=== PATIENT | female | born 1990 | race Caucasian/White ===

== ENCOUNTER 2022-11-15 10:10 | Emergency (ER) | payer OTHER ==
--- NOTE | 2022-11-15 11:02 | XRAY Report ---
PROCEDURE: Knee 4 View LT INDICATIONS: Trauma TECHNIQUE: 4 views of the left knee(s) were acquired. COMPARISON: None. FINDINGS: Bones: No fractures or dislocations. No suspicious bony lesions. Lateral subluxation of the patella due to mass effect from the effusion. Soft tissues: Massive knee joint effusion. No suspicious soft tissue calcifications or masses. IMPRESSION: Massive knee joint effusion, without displaced fracture. Internal derangement is probable. Consider n onemergent MRI. Reviewed by: Kamron Santamaria on 11/15/2022 11:01 AM PDT Approved by: Kamron Santamaria on 11/15/2022 11:01 AM PDT Station ID: [id number]
[2022-11-15] MEDS: oxyCODONE 5 MG TABLET PO STA ×2 (12:28→12:30)
[2022-11-15 13:10] LABS: BF CLARITY CLOUDY; BF SOURCE SYNOVIAL; CC,BF RBC 10000 /mm^3; CC,BF WBC 5179 /mm^3
[2022-11-15 13:11] LABS: BF COLOR YELLOW
[2022-11-15 13:24] LABS: LYMPHOCYTES %,BODY FLUID 7 %; MONOCYTES %,BODY FLUID 12 %; NEUTROPHILS %, BF 81 %
--- NOTE | 2022-11-15 13:30 | ED Physician Documentation ---
PD HPI LOWER EXT INJURY - Stated complaint Stated Complaint: LT KNEE PX,SWELLING - Chief complaint Chief Complaint: Trauma Ext - History obtained from History obtained from: Patient - Additional information Additional information: Patient is a 32-year-old female presenting for evaluation of left knee pain that has been present for the past 1 week with increasing swelling and pain. She remembers waking up in standing up from her bed and hearing a pop in the knee and feeling a laxity in the knee. Since then she has had increased swelling and pain. She has continued to ambulate. She is visiting from [place]. She does report a prior history of knee injury with an MRI but is unsure of The injury at that time. She was referred to physical therapy at that time. She has not required surgery for this knee. She does have a history of psoriatic arthritis and is on medications for this including methotrexate. Review of Systems Constitutional: denies: Fever Cardiac: denies: Chest pain / pressure Respiratory: denies: Dyspnea Musculoskeletal: reports: Extremity pain, Extremity swelling PD PAST MEDICAL HISTORY - Present Medications Home Medications: Ambulatory Orders Medication Instructions Recorded Confirmed HYDROcod/ACETAM 5/325 [Nathrop 5/325] 1 tab PO Q6HR PRN #15 tab 11/15/22 - Allergies Allergies/Adverse Reactions: Allergies Allergy/AdvReac Type Severity Reaction Status Date / Time infliximab Allergy Anaphylaxis Verified 11/15/22 10:24 PD ED PE NORMAL - General General: Alert and oriented X 3, No acute distress, Well developed/nourished - HEENT HEENT: Atraumatic - Neck Neck: Supple, no meningeal sign - Cardiac Cardiac: Strong equal pulses - Respiratory Respiratory: No respiratory distress - Extremities Extremities: No calf tenderness / cord, Other (Large amount of swelling and effusion present to left knee, no overlying erythema or warmth, pain with range of motion, no laxity noted on varus or valgus stress) - Neuro Neuro: No motor deficit, No sensory deficit Results - Vitals Vitals: Vital Signs - 24 hr 11/15/22 11/15/22 10:20 13:34 Temperature 37.2 C 37.0 C Heart Rate 90 88 Respiratory 14 16 Rate Blood Pressure 143/95 H 138/88 H O2 Saturation 97 98 Oxygen O2 Source Room air - Labs Labs: Laboratory Tests 11/15/22 12:00 Fluid Source SYNOVIAL Fluid Color YELLOW Fluid Clarity CLOUDY Fluid WBC 5179 Fluid RBC 11981 Fluid Neutrophils % 81 Fluid Lymphocytes % 7 Fluid Monocytes % 12 Procedures - Arthrocentesis Joint: Knee, Left Preparation: Consent obtained (verbal), Sterile prep and drape Anesthesia: Lidocaine 1% Fluid: Clear, Sent for cell count, Sent for culture, Fluid obtained - cc (100), Other (Straw colored) Aftercare: Dressing applied, No complications, Patient tolerated well PD Medical Decision Making - ED course Complexity details: re-evaluated patient ED course: Patient is a 32-year-old presenting for evaluation of left knee pain for the past 1 week. X-ray was obtained which I reviewed and I see no fracture. There is mild subluxation of the patella related to the effusion. Patient gave verbal consent for knee arthrocentesis for evaluation of the fluid. She is feeling better after 100 cc of fluid were drained. On review of the cell count at this is consistent with an inflammatory response. I do not suspect a septic joint. Patient was given a knee immobilizer and crutches and counseled on need for follow-up with PCP as well as for outpatient MRI.Advised on concerning symptoms to return for. Departure - Departure Disposition: 01 Home, Self Care Clinical Impression: Left knee injury Condition: Stable Instructions: ED Knee Pain UKO Prescriptions: HYDROcod/ACETAM 5/325 [Nathrop 5/325] 1 tab PO Q6HR PRN #15 tab PRN Reason: Moderate Pain (Level 4-6) Comments: You were evaluated for injury to your left knee. Your x-ray does not show a broken bone but you do have a significant effusion which is likely causing worsening pain. I did drain fluid off of the knee which should hopefully help with your symptoms. On review of the results of the fluid it appears to be related to inflammation. I do not suspect infection at this time. I would recommend close follow-up with your primary care provider. You likely need an MRI as there is likely a significant injury to other structures in the knee. Please continue with the splint and crutches. I also sent a prescription for narcotic pain medications to [facility] in [place]. I am prescribing a short course of narcotic pain medication for you. These are potentially dangerous and addictive medications that should be used carefully. These medications may constipate you. Take an [id number] stool softener (docusate) twice daily with plenty of water while taking these medications. If you go 24 hours without a bowel movement, take [id number] miralax, per package instructions. Do not drink or drive while taking these medications. If you received narcotic or sedating medications while in the emergency de partment, do not drive for 24 hours. Store this medication in a safe, secure place and out of reach of children. It is a violation of federal law to give or sell this medication to another person or to use in a manner other than prescribed. The ED will not refill narcotic prescriptions, including prescriptions lost or stolen. To dispose of unwanted medications: 1. [facility] [address] in [place] has a medication drop box. They accept prescription medications (in pill form) Monday through Monday 9:00 a.m. to 5:00 p.m. 2. [facility] accepts prescription medications (in pill form only) for disposal year round. Call for more information. 3. Contact the [facility] for the next [facility] sponsored prescription drug collection event. , [phone], or [phone]; Note that many narcotic pain relievers also contain Tylenol/acetaminophen. Please ensure that your total dose of acetaminophen from all sources does not exceed 3 g (3000 mg) per day. Forms: PCP List Discharge Date/Time: 11/15/22 13:34
[2022-11-15 13:44] VITALS: BP 138/88; O2SAT 98
== END 2022-11-15 13:34 | disposition home or self-care (01) ==
LOC: ED 10:10
DX: S89.92XA Unspecified injury of left lower leg, initial encounter (principal); X58.XXXA Exposure to other specified factors, initial encounter
CPT/HCPCS: 20610; 87070; 87205; 89051; 99283